=== PATIENT | male | born 1995 | race Caucasian/White ===

== ENCOUNTER 2023-07-14 13:25 | Emergency (ER) | payer OTHER, SELFPAY ==
[2023-07-14 13:38] VITALS: BP 131/86; PULSE 82; RESP 16; O2SAT 95; BMI 28.4
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
== END 2023-07-14 15:35 | disposition home or self-care (01) ==
PROVIDERS: Emergency Provider Family Medicine
DX: S01.111A Laceration without foreign body of right eyelid and periocular area, initial encounter (principal); R07.89 Other chest pain; S00.01XA Abrasion of scalp, initial encounter; Y04.2XXA Assault by strike against or bumped into by another person, initial encounter
CPT/HCPCS: 70450; 70486; 71101; 72125; 99284